=== PATIENT | male | born 1950 | race Caucasian/White ===

== ENCOUNTER → 2016-04-10 | Outpatient (CLI) | payer BC, OTHER | END | disposition home or self-care (01) | LOC: PCVCIMAG 08:51 | PROVIDERS: ATTEND Internal Medicine Cardiovascular Disease | DX: R94.31 Abnormal electrocardiogram [ECG] [EKG] (principal); I34.0 Nonrheumatic mitral (valve) insufficiency; R00.1 Bradycardia, unspecified; R00.2 Palpitations | CPT/HCPCS: 93005; 93306; G0463 ==

== ENCOUNTER → 2017-10-30 | Outpatient (CLI) | payer OTHER | END | disposition home or self-care (01) | LOC: PCVCIMAG 16:42 | DX: I05.1 Rheumatic mitral insufficiency (principal); R94.31 Abnormal electrocardiogram [ECG] [EKG]; R00.2 Palpitations; R00.1 Bradycardia, unspecified | CPT/HCPCS: 93306 ==